=== PATIENT | female | born 1950 | race Caucasian/White ===

== ENCOUNTER 2017-12-19 09:56 | Emergency (ER) | payer MEDICARE ==
[~2017-12-19] VITALS: Ht 162.6 cm; Wt 65.9 kg
[2017-12-19] MEDS ORDERED: PROPRANOLOL HCL20 MG PO (10:26)
[2017-12-19] MEDS ORDERED: HYDROCHLOROT12.5 MG PO (10:26)
[2017-12-19] MEDS ORDERED: ATORVASTATIN CA10 MG PO (10:27)
[2017-12-19] MEDS ORDERED: TRAMADOL HCL50 MG PO (10:27)
[2017-12-19 10:41] LABS: HEMOGLOBIN 13.5 g/dl (12.0-16.0); IMMATURE GRANULOCYTES 0.6 % (0.0-5.0); MEAN CELL VOLUME 99.5 fL CALC (80.0-100.0); MEAN CORPUSCULAR HGB 33.6 pG CALC (26.0-32.0); MEAN CORPUSCULAR HGB CONC 33.8 g/L CALC (32.0-36.0); NEUT# 7.66 thou/uL (2.00-7.15); RED BLOOD COUNT 4.02 mill/uL (4.20-5.60); RED CELL DISTRI WIDTH 13.2 % (11.5-15.5)
[2017-12-19 10:56] LABS: ALBUMIN 4.4 g/dL (3.2-5.0); ALKALINE PHOSPHATASE 123 u/l (38-126); ANION GAP 14 (6-22 (CALC)); BILIRUBIN, TOTAL 0.7 mg/dL (0.0-1.4); BUN 10 mg/dL (8-23); BUN/CREATININE RATIO 15 (12-20 (CALC)); CARBON DIOXIDE 30 mmol/l (22-30); CHLORIDE 96 mmol/l (95-108); CREATININE 0.7 mg/dL (0.5-1.0); GFR > 60 ML/MIN (>=60 (CALC)); GFR FOR AFR.AMER. > 60 ML/MIN (>=60 (CALC)); POTASSIUM 3.6 mmol/l (3.5-5.1); SGOT/AST 41 u/l (9-36); SGPT/ALT 35 u/l (11-66); SODIUM 137 mmol/l (137-146); TOTAL PROTEIN 7.7 g/dL (6.3-8.2)
[2017-12-19 11:06] LABS: MYOGLOBIN 34 ng/mL (0 - 62)
[2017-12-19 11:35] LABS: URINE BILIRUBIN - DIPSTICK NEGATIVE (NEGATIVE); URINE BLOOD DIPSTICK NEGATIVE (NEGATIVE); URINE COLOR YELLOW; URINE GLUCOSE - DIPSTICK NEGATIVE (NEGATIVE); URINE KETONE NEGATIVE (NEGATIVE); URINE NITRITE - DIPSTICK NEGATIVE (Negative); URINE PROTEIN - DIPSTICK NEGATIVE (NEG-TRACE); URINE UROBILINOGEN - DIPSTICK 0.2 E.U./dL (0.2)
[2017-12-19 11:39] LABS: URINE CLARITY SL CLOUDY; URINE LEUK ESTERASE SMALL (NEGATIVE)
[2017-12-19 11:40] LABS: URINE BACTERIA FEW hpf; URINE EPITHELIAL CELLS FEW EPI/hpf (0-FEW)
[2017-12-19] MEDS ORDERED: ANTIVERT PO (12:06)
[2017-12-19] MEDS ORDERED: CIPROFLOXACN500 MG PO (12:06)
[2017-12-19 12:07] VITALS: BP 117/56
== END 2017-12-19 12:16 | disposition home or self-care (01) ==
LOC: ED 09:56
PROVIDERS: Emergency Medicine
DX: R42 Dizziness and giddiness (principal); S09.90XA Unspecified injury of head, initial encounter; N39.0 Urinary tract infection, site not specified; I10 Essential (primary) hypertension; F32.9 Major depressive disorder, single episode, unspecified; H35.30 Unspecified macular degeneration; F17.210 Nicotine dependence, cigarettes, uncomplicated; W19.XXXA Unspecified fall, initial encounter

== ENCOUNTER 2019-01-16 14:29 | Emergency (ER) | payer MEDICARE ==
[~2019-01-16] VITALS: Ht 162.6 cm; Wt 65.0 kg
[~2019-01-16 14:29] MED LIST: ANTIVERT PO; ATORVASTATIN CA10 MG PO; CIPROFLOXACN500 MG PO; HYDROCHLOROT12.5 MG PO; PROPRANOLOL HCL20 MG PO; TRAMADOL HCL50 MG PO
[2019-01-16 16:20] VITALS: BP 135/60
== END 2019-01-16 16:20 | disposition home or self-care (01) ==
LOC: ED 14:29
PROC: 2W3CX1Z Immobilization of Right Lower Arm using Splint (ICD-10-PCS; principal; 2019-01-16)
DX: S52.501A Unspecified fracture of the lower end of right radius, initial encounter for closed fracture (principal); I10 Essential (primary) hypertension; F17.200 Nicotine dependence, unspecified, uncomplicated; W01.0XXA Fall on same level from slipping, tripping and stumbling without subsequent striking against object, initial encounter; Y92.009 Unspecified place in unspecified non-institutional (private) residence as the place of occurrence of the external cause